=== PATIENT | female | born 1995 | race Caucasian/White ===

== ENCOUNTER 2016-11-21 19:58 | Emergency (ER) | payer BC ==
[2016-11-21] MEDS ORDERED: Amoxicillin/Clavulanate K 875-125 MG Tab ONE (20:35)
[2016-11-21] MEDS ORDERED: Amoxicillin/Clavulanate K 875-125 MG Tab PO ONE (20:35)
--- NOTE | 2016-11-23 00:40 | ER ---
DATE SEEN: 11/21/2016 TIME SEEN: The patient was seen at 8:30 p.m. HISTORY OF PRESENT ILLNESS: Cat is brought in by paramedics and had a cat that became frightened as the dog intimidated it and the cat scratched her in the face. She has superficial claw jose juan approximately 2 inch above the left lateral temporofrontal junction brow and just superior to the brow also and just one very superficial scratch on the upper left lateral lid and below the left lateral orbit. The patient's cat's RABIES shots are up-to-date. No evidence for rabies abnormality. The patient's Tdap is in place and up-to-date also. PHYSICAL EXAMINATION: VITAL SIGNS: Blood pressure 129/93, heart rate 82, respirations 18, oxygen saturation 100%, and temperature is 36.8 degrees centigrade. GENERAL: Cat scratch is noted as above, left lateral mandaeism region, left superior brow region, left upper lid, left inferior orbital region. Wounds are superficial. Depth is indeterminate. Otherwise trace swelling at the site of the cat scratch claw manzanares. HEENT: PERRLA intact. Pharynx without abnormality. Eyegrounds normal appearance. No evidence for corneal involvement or irritation of the orbit itself. No transection or entry through the lid surface. LUNGS: Clear. HEART: Without murmur. ABDOMEN: No discomfort. EXTREMITIES: Without abnormality. NEUROLOGIC: Appropriate and alert. ASSESSMENT: Cat scratch. Risk for Pasteurella multocida. PLAN: Treat with Augmentin 875 mg b.i.d. 20 tablets. Follow up with doctor in 5 to 7 days or earlier if worse. Shower and clean as needed. Use bacitracin/Neosporin, Triple Antibiotic ointment once or twice a day. /[id number] BONNY/JERRY WONG
== END 2016-11-21 21:20 | disposition home or self-care (01) ==
LOC: FB.ED 19:58
DX: S00.212A Abrasion of left eyelid and periocular area, initial encounter (principal); S00.81XA Abrasion of other part of head, initial encounter; W55.03XA Scratched by cat, initial encounter
CPT/HCPCS: 99282; A9270

== ENCOUNTER 2019-09-27 22:19 | Emergency (ER) | payer BC, MEDICAID ==
[2019-09-27] MEDS ORDERED: Metoclopramide 10 MG/2 ML SDV IVPUSH ONE (22:46)
[2019-09-27] MEDS ORDERED: Ketorolac 30 MG/ML SDV IVPUSH ONE (22:46)
[2019-09-27] MEDS ORDERED: diphenhydrAMINE 50 MG/ML SDV IVPUSH ONE (22:46)
--- NOTE | 2019-09-27 22:53 | EDM.PDOC ---
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, ate supper, slept in recliner, awoke and had inc'd pain with nausea, unable to take her usual APAP/ibuprofen/Benadryl no visual or hearing change, sat shaking on bed for one hour, had trouble speaking to boyfriend at one juncture is able to move easily here in ED says her last "migraine" was 2w ago Headache Pain Score (Numeric/FACES): 7 - Related Data Allergies Allergy/AdvReac Type Severity Reaction Status Date / Time No Known Allergies Allergy Verified 09/27/19 22:28 Home Meds: Home Meds Ondansetron [Ondansetron ODT] 4 mg PO Q6H PRN #6 tab.rapdis 09/27/19 [Rx] Past Medical History Neurological History: Reports: Migraines Psychiatric History: Reports: Anxiety, Depression Social & Family History - Family History Family Medical History: Noncontributory - Tobacco Use Smoking Status *Q: Never Smoker - Caffeine Use Caffeine Use: Reports: Soda - Recreational Drug Use Recreational Drug Use: No ED ROS GENERAL - Review of Systems Review Of Systems: See Below Constitutional: Reports: No Symptoms HEENT: Reports: No Symptoms Respiratory: Reports: No Symptoms Cardiovascular: Reports: No Symptoms Endocrine: Reports: No Symptoms GI/Abdominal: Reports: Nausea : Reports: No Symptoms Musculoskeletal: Reports: No Symptoms Skin: Reports: No Symptoms Neurological: Reports: Headache Psychiatric: Reports: No Symptoms Hematologic/Lymphatic: Reports: No Symptoms Immunologic: Reports: No Symptoms ED EXAM, GENERAL - Physical Exam Exam: See Below Exam Limited By: Other (normal speech, seats easily on bed, lights on in room, cognitive intact, articulate) General Appearance: Alert, WD/WN, Mild Distress Eye Exam: Bilateral Eye: EOMI, Normal Inspection, PERRL Ears: Normal External Exam, Normal Canal, Hearing Grossly Normal Nose: Normal Inspection, Normal Mucosa, No Blood Throat/Mouth: Normal Inspection, Normal Lips, Normal Teeth, Normal Gums, Normal Oropharynx, Normal Voice, No Airway Compromise Head: Atraumatic, Normocephalic Neck: Normal Inspection, Supple, Non-Tender, Full Range of Motion, Other (no spasm, no point tender, occiput NT). No: Lymphadenopathy (R), Lymphadenopathy (L) Cardiovascular: Regular Rate, Rhythm, No Edema, No Murmur GI/Abdominal: Soft, Non-Tender Back Exam: Normal Inspection Extremities: Normal Inspection, Normal Range of Motion, Non-Tender, No Pedal Edema Neurological: Alert, Oriented, CN II-XII Intact, Normal Cognition, No Motor/Sensory Deficits Psychiatric: Normal Affect, Normal Mood Skin Exam: Warm, Dry, Intact, Normal Color, No Rash Lymphatic: No Adenopathy Course - Vital Signs Last Recorded V/S: Last Vital Signs Temp 36.4 C 09/27/19 22:28 Pulse 89 09/27/19 22:28 Resp 16 09/27/19 22:28 BP 134/95 H 09/27/19 22:28 Pulse Ox 100 09/27/19 22:28 - Orders/Labs/Meds Meds: Medications Discontinued Medications Generic Name Dose Route Start Last Admin Trade Name Freq PRN Reason Stop Dose Admin Diphenhydramine HCl 25 mg 09/27/19 22:46 Benadryl IVPUSH 09/27/19 22:47 ONETIME ONE Ketorolac Tromethamine 30 mg 09/27/19 22:46 Toradol IVPUSH 09/27/19 22:47 ONETIME ONE Metoclopramide HCl 10 mg 09/27/19 22:46 Reglan IVPUSH 09/27/19 22:47 ONETIME ONE Departure - Departure Time of Disposition: 23:25 Disposition: Home, Self-Care 01 Condition: Good Clinical Impression: Occipital headache - Discharge Information *PRESCRIPTION DRUG MONITORING PROGRAM REVIEWED*: Not Applicable *COPY OF PRESCRIPTION DRUG MONITORING REPORT IN PATIENT BENITA: Not Applicable Prescriptions: Ondansetron [Ondansetron ODT] 4 mg PO Q6H PRN #6 tab.rapdis PRN Reason: Nausea Instructions: Migraine Headache Referrals: Ritu Olivares, [facility]EEPER [Primary Care Provider] - Additional Instructions: Take an additional dose of ibuprofen 200 mg 3 tabs and acetaminophen 500 mg 2 tabs in 6 hours or when you awake. May repeat every 6 hours as needed. May take diphenhydramine (Benadryl) 25 mg 1-2 tabs at the same time as needed. In the future, if you have nausea, take ondansetron ODT 4 mg under the tongue 15 minutes prior to taking your migraine meds (ibuprofen plus acetaminophen plus diphenhydramine can be a good combination). Get adequate rest. Eat 3 meals a day. See your doctor in 4-5 days for further recommendations. Return to ED if you are feeling worse. Sepsis Event Note (ED) - Evaluation Sepsis Screening Result: No Definite Risk - Focused Exam Vital Signs: Vital Signs Temp Pulse Resp BP Pulse Ox 09/27/19 22:28 36.4 C 89 16 134/95 H 100
== END 2019-09-27 23:17 | disposition home or self-care (01) ==
LOC: FB.ED 22:19
DX: R51 Headache (principal)
CPT/HCPCS: 96374; 96375; 99283; J1200; J1885; J2765